=== PATIENT | male | born 1950 | race Caucasian/White ===

== ENCOUNTER 2023-02-03 09:09 | Day surgery (SDC) | payer OTHER ==
[~2023-02-03] VITALS: Ht 170.2 cm; Wt 62.1 kg
[2023-02-03] MEDS ORDERED: SEVOFLURANE 15 MIN GAS INH ONE (13:16)
[2023-02-03] MEDS ORDERED: SUCCINYLCHOLINE CHLORIDE 20 MG/ML(QUELICIN) ONE (13:16)
[2023-02-03] MEDS ORDERED: fentaNYL CITRATE/PF 100 MCG/2 ML AMP ONE (13:16)
[2023-02-03] MEDS ORDERED: NS IRRIG SOLN 1000 ML IR ONE (13:16)
[2023-02-03] MEDS ORDERED: BUPIVACAINE /PF 0.25% 30 ML VIAL INJ ONE (13:16)
[2023-02-03] MEDS ORDERED: PROPOFOL 200MG/ 20ML VIAL (DIPRIVAN) IV ONE (13:16)
[2023-02-03] MEDS ORDERED: LR 1,000 ML IV.SOLN IV ONE (13:16)
[2023-02-03] MEDS ORDERED: KETOROLAC TROMETHAMINE 30 MG VIAL ONE (13:16)
[2023-02-03] MEDS ORDERED: ONDANSETRON HCL 4 MG/2 ML VIAL ONE (13:16)
[2023-02-03] MEDS ORDERED: BUPIVACAINE LIPOSOME/PF 266 MG/20 ML VIAL INFIL ONE (13:33)
[2023-02-03 17:42] VITALS: BP_SYST 124
[2023-02-04] MEDS ORDERED: LORA-259 PO (12:11)
== END 2023-02-03 16:50 | disposition home or self-care (01) ==
LOC: SDS 09:09 → SMU 09:16 → SDS 16:50
PROVIDERS: ATTEND Surgery
DX: K64.8 Other hemorrhoids (principal); Z20.822 Contact with and (suspected) exposure to COVID-19
CPT/HCPCS: 87081; 46260; 36415; 88304; 87426; C9290; J3490; J1885; J2405; J2704; J0330; J3010; J7120

== ENCOUNTER 2023-02-04 09:30 | Emergency (ER) | payer OTHER ==
[~2023-02-04] VITALS: Ht 170.2 cm; Wt 62.1 kg
[2023-02-04 09:30] VITALS: BP_SYST 115
--- NOTE | 2023-02-04 09:35 | NUR ---
Patient triaged and placed in waiting room. VSS and patient appears in no acute distress at this time. Accompanied by SELF, awaiting available bed, and MD notified of need for MSE.
--- NOTE | 2023-02-04 10:05 | NUR ---
DR LINARES OUT TO TRIAGE ROOM FOR EVALUATION
[2023-02-04 11:19] LABS: BASOPHILS % (AUTO) 0.1 % (0.0-2.0); HEMATOCRIT 40.4 % (36-54); HEMOGLOBIN 13.5 g/dL (14.0-18.0); LYMPHOCYTES # (AUTO) 0.5 K/uL (1.0-5.5); LYMPHOCYTES % (AUTO) 3.9 % (20.5-51.5); MEAN CORPUSCULAR HEMOGLOBIN 32 pg (27-31); MEAN CORPUSCULAR HGB CONC 33 % (32-36); MEAN CORPUSCULAR VOLUME 95 fL (79.0-98.0); MONOCYTES # (AUTO) 0.5 K/uL (0.0-1.0); MONOCYTES % (AUTO) 3.7 % (1.7-9.3); NEUTROPHILS # (AUTO) 11.2 K/uL (1.8-7.7); NEUTROPHILS % (AUTO) 92.3 % (40.0-70.0); PLATELET COUNT (AUTO) 156 K/uL (130-430); RED BLOOD CELL COUNT(AUTO) 4.26 MIL/uL (4.2-6.2); RED CELL DISTRIBUTION WIDTH 13.2 % (9.0-15.0); WHITE BLOOD COUNT (AUTO) 12.2 K/uL (4.8-10.8)
[2023-02-04 11:39] LABS: ANION GAP 5 (5-15); CALCIUM 8.9 mg/dL (8.4-11.0); CHLORIDE 100 mmol/L (98-107); CREATININE 0.94 mg/dL (0.55-1.30); GLUCOSE 117 mg/dL (70-99); UREA NITROGEN, BLOOD 12 mg/dL (8-21)
[2023-02-04 11:43] LABS: ALANINE AMINOTRANSFERASE 24 U/L (12-78); ALBUMIN 3.4 g/dL (3.4-4.8); ASPARTATE AMINOTRANSFERASE 18 U/L (10-37); C-REACTIVE PROTEIN QUANT 6.8 mg/dL (0-0.5); TOTAL BILIRUBIN 0.7 mg/dL (0.0-1.0)
--- NOTE | 2023-02-04 11:50 | NUR ---
BROUGHT BACK TO BED #6 VIA WHEELCHAIR, REPORT GIVEN TO ROSEANNA
--- NOTE | 2023-02-04 11:55 | NUR ---
PT BIB SELF FROM HOME WITH C/O SEVERE NERVE PAIN THAT STARTED YESTERDAY. PT STATES HE HAD HEMORRHOID REMOVAL SURGERY YESTERDAY AND IS COMPLAINGF NERVE PAIN THAT WAS BROUGHT ON BY THE ANESTHESIA. PT STATES AT THIS TIME HE FEELS PAIN ALL OVER HIS BODY AND HIS NERVE ARE ON FIRE. HX - LEFT LEG AMPUTATION, HEMORRHOID SURGERY. PT IS AAXO4, NAD, VSS, PT BREATHING EVEN AND UNLABORED ON RA, PT ON AFTERSCHOOL BABYSITTER SHOWING NSR. SAFETY PRECAUTIONS AND COMFORT MEASURES IN PLACE. PENDING MD IVEY AND ORDERS.
--- NOTE | 2023-02-04 12:03 | NUR ---
DR. LINARES AT BEDSIDE EXAMINING THE PT.
[2023-02-04] MEDS ORDERED: LORA-259 PO (12:11)
--- NOTE | 2023-02-04 12:21 | NUR ---
PT MEDICALLY CLEARED FOR DISCHARGE. D/C INSTRUCTIONS GIVEN TO PT. PT TO FOLLOW-UP WITH PCP WITHIN 1-3 DAYS AND TO RETURN TO ED FOR WORSENING S/S. PT VERBALZIED UNDERSTANDING. PT AAX04, NAD, WRISTBAND REMOVED. PT AMBULATORY WITH STEADY GAIT. PT LEFT ED WITH ALL BELONGINGS.
[2023-02-04 12:27] VITALS: BP_SYST 128
== END 2023-02-04 12:21 | disposition home or self-care (01) ==
LOC: SED 09:30
DX: M62.838 Other muscle spasm (principal); D72.829 Elevated white blood cell count, unspecified; K21.9 Gastro-esophageal reflux disease without esophagitis; I10 Essential (primary) hypertension
CPT/HCPCS: 36415; 80053; 82550; 83735; 85025; 86140; 99283